=== PATIENT | male | born 2000 | race Caucasian/White ===

== ENCOUNTER 2020-07-02 14:00 | Emergency (ER) | payer OTHER, SELFPAY ==
[2020-07-02 14:07] VITALS: BP 120/62; PULSE 75; RESP 16; TEMP 36.2; O2SAT 100
--- NOTE | 2020-07-02 14:42 | ED.MALEGU ---
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 States the pain is persistent or worsens with pressure; uncomfortable sitting down so patient is lying on the stretcher; 4/10 lying, 8/10 when sitting Related Data Home Medications Medication Instructions Recorded Confirmed clobetasol 1 applic TOPICAL 2XW 07/02/20 07/02/20 Allergies Allergy/AdvReac Type Severity Reaction Status Date / Time No Known Allergies Allergy Verified 07/02/20 14:40 Review of Systems Review of Systems: Narrative: CONSTITUTIONAL: Denies fever, chills, sweats. EYES: Denies visual changes, redness, discharge. ENT: Denies rhinorrhea, congestion, sore throat, otalgia. CARDIOVASCULAR: Denies chest pain, palpitations, edema. RESPIRATORY: Denies dyspnea, wheezing, cough GASTROINTESTINAL: Denies abdominal pain, nausea, vomiting, diarrhea. GENITOURINARY: Denies dysuria, hematuria, abnormal discharge left lower inguinal, testicular pain SKIN: Denies rash or itching. NEUROLOGIC: Denies numbness, or focal weakness. PSYCHIATRIC: Denies anxiety or depression. [facility] Past Medical History Medical History No acute medical problems Family History Family History Other No acute medical problems Social History Social History (Updated 07/02/20 @ 15:17 by Christine Crane CNP) Smoking status: Never smoker Alcohol intake: never Comments At time of signature, I agree with nursing past medical, surgical, social and family history. There is no relevant family history pertinent to the presenting complaint. Exam Narrative: Exam Narrative: GENERAL: This is a well-nourished, well-developed patient, in moderate distress. HEAD: normocephalic, atraumatic. EYES: Sclera clear/white. Vision is grossly intact. EARS: External ears normal. Hearing grossly intact. NOSE: External nose normal without nasal discharge, nares without redness, no rhinorrhea. THROAT: Mucous membranes moist, NECK: Neck supple, non-tender CARDIOVASCULAR: Regular rate and rhythm without murmurs, gallops, or rubs. RESPIRATORY: Clear to auscultation. Breath sounds equal bilaterally. No wheezes, rales, or rhonchi. GASTROINTESTINAL: Abdomen soft, tender lower left inguinal area and left testicle which is mildly red and enlarged but not indurated, SKIN: warm, intact with no suspicious lesions or rash, good texture and turgor. NEURO: awake, alert, and oriented to person, place and time. There were no obvious focal neurologic abnormalities. Steady gait EXTREMITIES: Normal range of motion. BACK: Nontender without deformity Course Course Emergency Course: Patient was lifting at work and afterwards developed this lower left inguinal area On exam his testicle on the left appeared enlarged and patient could not sit up because of the pain of putting pressure on the area; manual exam left testicle was not indurated but tender to touch Patient transferred to [place] for ultrasound of the testicle spoke with RENZO Lizarraga Vital Signs Vital signs: Vital Signs Temperature 97.2 F L 07/02/20 14:07 Pulse Rate 75 07/02/20 14:07 Respiratory Rate 16 07/02/20 14:07 Blood Pressure 120/62 07/02/20 14:07 Pulse Oximetry 100 07/02/20 14:07 Temperature 97.2 F L 07/02/20 14:07 Pulse Rate 75 07/02/20 14:07 Respiratory Rate 16 07/02/20 14:07 Blood Pressure 120/62 07/02/20 14:07 Pulse Oximetry 100 07/02/20 14:07 MDM - Male Genitourinary Differential Diagnosis Differential diagnosis: Likely urinary tract infection, epidi
== END 2020-07-02 15:12 | disposition short-term general hospital (02) ==
PROVIDERS: Emergency Provider Nurse Practitioner; PCP Pediatrics
DX: N50.812 Left testicular pain (principal)
CPT/HCPCS: 81003; 99202; G0463

== ENCOUNTER 2020-07-02 15:29 | Emergency (ER) | payer OTHER, SELFPAY ==
--- NOTE | ~2020-07-02 | US_ITS ---
EXAMINATION: US scrotum doppler EXAM DATE: 07/02/2020 16:11 INDICATION: Groin, testicular pain. TECHNIQUE: Multiple grayscale and Doppler images of the testicles and scrotum were obtained bilateral ly. There is no prior study for comparison. FINDINGS: Right testicle measures 4.6 x 2.1 x 2.7 cm and is morphologically normal. Low resistance Doppler tricia w confirmed. The epididymis is unremarkable. There is no hydrocele or varicocele. Left testicle measures 4.4 x 1.9 x 2.8 cm and is morphologically normal. Low resistance Doppler flow confirmed. The epididymis is unremarkable. There is no hydrocele or varicocele. IMPRESSION: 1. Unremarkable testicular/scrotal ultrasound exam. Reviewed, dictated and finalized at location B.
[2020-07-02 15:30] VITALS: BP 121/61; PULSE 93; RESP 16; TEMP 36.8; O2SAT 100
[2020-07-02 16:01] LABS: Add Urine Microscopic? YES; Appearance Urine Clear (Clear); Bilirubin Urine Negative (Negative); Blood Urine Negative (Negative); Color Urine Yellow (Yellow); Glucose Urine UA Negative (Negative); Ketones Urine Negative (Negative); Leukocyte Esterase Ur Negative LEU/UL (Negative); Mucus Urine Rare /lpf; Nitrate Urine Negative (Negative); Protein Urine Negative (Negative); Squamous Epithelial Cell Urine Rare /hpf (Few); WBC Urine 0-3 /hpf
--- NOTE | 2020-07-02 16:36 | ED.GENADULT ---
HPI - General Adult General Chief complaint: Urogenital-Male <Zack Lizarraga PA-C - Last Filed: 07/02/20 16:43> Stated complaint: LEFT SIDED GROIN/TESTICULAR PAIN <Zack Lizarraga PA-C - Last Filed: 07/02/20 16:43> Time Seen by Provider: 07/02/20 15:51 <Zack Lizarraga PA-C - Last Filed: 07/02/20 16:43> Source: patient <Zack Lizarraga PA-C - Last Filed: 07/02/20 16:43> Mode of arrival: ambulatory <Zack Lizarraga PA-C - Last Filed: 07/02/20 16:43> Limitations: no limitations <Zack Lizarraga PA-C - Last Filed: 07/02/20 16:43> History of Present Illness HPI narrative: Patient is a 20-year-old male who presents to emergency department with left testicular pain from urgent care. Patient notes he does do frequent lifting at work developed aching pain to the left groin testicular region pain is worse with activity and movement patient denies known injury or trauma or any urinary symptoms or other complaints. Patient afebrile nontoxic-appearing no distress upon arrival does not appear uncomfortable has not taken anything for his pain <Zack Lizarraga PA-C - Last Filed: 07/02/20 16:43> Related Data Home medications: Home Medications Medication Instructions Recorded Confirmed clobetasol 1 applic TOPICAL 2XW 07/02/20 07/02/20 <Zack Lizarraga PA-C - Last Filed: 07/02/20 16:43> Allergies/adverse reactions: Allergies Allergy/AdvReac Type Severity Reaction Status Date / Time No Known Allergies Allergy Verified 07/02/20 14:40 <Zack Lizarraga PA-C - Last Filed: 07/02/20 16:43> Review of Systems Review of Systems: All systems reviewed & are unremarkable except as noted in HPI and below <Zack Lizarraga PA-C - Last Filed: 07/02/20 16:43> PMFSH Past Medical History Medical History: Medical History No acute medical problems <BENNY Durant Last Filed: 07/02/20 16:43> Family History Family History: Family History Other No acute medical problems <Zack Lizarraga PA-C - Last Filed: 07/02/20 16:43> Social History Social History: Social History Smoking status: Never smoker Alcohol intake: never <Zack Lizarraga PA-C - Last Filed: 07/02/20 16:43> Exam Narrative: Exam Narrative: GENERAL: Well-appearing, well-nourished, and in no acute distress. HEAD: Normocephalic, atraumatic. EYES: PERRLA and EOMI. ENT: Nares clear, no rhinorrhea or epistaxis. Mucous membranes moist. CHEST: Clear to auscultation. No respiratory distress. No wheezes rales or rhonchi HEART: Regular rate and rhythm. No murmur heard. Normal peripheral pulses. ABDOMEN: Soft, nontender, nondistended MALE GENITOURINARY: Tenderness of the left testicle with no abnormality noted no masses or other lesions groin nontender normal male genitalia aside from tenderness EXTREMITIES: Normal range of motion. No edema. SKIN: Warm, dry, no rash. NEURO: No focal deficits. Alert and oriented x3. PSYCH: Normal mood and affect. <Zack Lizarraga PA-C - Last Filed: 07/02/20 16:43> Course Course Emergency Course: Patient in the room in no distress aware of case findings treatment plan and diagnosis no abnormalities on the ultrasound normal urinalysis patient will follow with primary care patient likely experiencing patient strain of the groin. <Zack Lizarraga PA-C - Last Filed: 07/02/20 16:43> Vital Signs Vital signs: Vital Signs Temperature 98.2 F 07/02/20 15:30 Pulse Rate 93 07/02/20 15:30 Respiratory Rate 16 07/02/20 15:30 Blood Pressure 121/61 07/02/20 15:30 Pulse Oximetry 100 07/02/20 15:30 Temperature 98.2 F 07/02/20 15:30 Pulse Rate 93 07/02/20 15:30 Respiratory Rate 16 07/02/20 15:30 Blood Pressure 121/61 07/02/20 15:30 Pulse
[2020-07-02] MEDS: KETOROLAC (*BKC) 60 MG/2 ML VIAL 30 MG IM (16:41)
== END 2020-07-02 16:58 | disposition home or self-care (01) ==
PROVIDERS: Emergency Medicine; Emergency Provider General Practice; PCP Pediatrics
DX: R10.32 Left lower quadrant pain (principal)
CPT/HCPCS: 76870; 81001; 81003; 93976; 96372; 99284; J1885

== ENCOUNTER 2021-06-22 09:46 | Emergency (ER) | payer OTHER, SELFPAY ==
--- NOTE | ~2021-06-22 | CT_ITS ---
EXAMINATION: CT abdomen pelvis w con DATE: 06/22/2021 11:53 INDICATION: Right lower quadrant abdominal pain TECHNIQUE: Computed tomography (CT) of the abdomen and pelvis was performed with 100 mL Omnipaque-350 intravenous contrast. Automated exposure control and iterative reconstruction technique were employe d. The dose-length product was 215.89 mGy-cm. COMPARISON: None FINDINGS: Lung bases are clear. Heart size is normal. No pericardial or pleural effusion. Liver, gallbladder, s pleen, pancreas, bilateral adrenal glands and kidneys are normal. The talus and at the terminal ileum with small amount of increased submucosal fat which can be seen with increased body habitus but coul d also be sequela of chronic inflammation such as in the setting of Crohn's disease. No inflammatory stranding in the surrounding fat to more specifically suggest this. Bowels including the appendix are otherwise normal. Bladder is normal. No free intraperitoneal gas or fluid. No pathologically enlarge d abdominal or pelvic lymphadenopathy. Bones are unremarkable. IMPRESSION: 1. Subtle fat halo sign at the terminal ileum which does raise some suspicion for Crohn's disease alt maricel there is no associated inflammatory stranding to more specifically suggest this. 2. Normal appendix. No other acute intra-abdominal/pelvic process. Reviewed, dictated and finalized at location A. IMPRESSION: 1. Subtle fat halo sign at the terminal ileum which does raise some suspicion f or Crohn's disease although there is no associated inflammatory stranding to mo re specifically suggest this. 2. Normal appendix. No other acute intra-abdominal/pelvic process.
[2021-06-22 09:59] VITALS: BP 137/64; PULSE 73; RESP 16; TEMP 36.1; O2SAT 100
[2021-06-22 09:59] LABS: Basophils Percent Auto 0.6 % (0.2-1.2); Eosinophils Absolute Auto 0.1 K/mm3 (0-0.3); Eosinophils Percent Auto 1.8 % (0-4.4); Hematocrit 42.4 % (42.0-52.0); Hemoglobin 14.8 g/dL (14.0-18.0); Immature Granulocyte Absolute 0.02 K/mm3 (0.00-0.031); Immature Granulocyte Percent A 0.3 % (0-0.5); Lymphocytes Absolute Auto 2.23 K/mm3 (0.9-3.2); Lymphocytes Percent Auto 33.1 % (18.3-44.2); Mean Corpuscular HGB Conc 34.9 g/dl (32-36); Mean Corpuscular Volume 88.7 fl (80-100); Mean Platelet Volume 10.2 fl (7.4-10.4); Monocytes Absolute Auto 0.6 K/mm3 (0.1-0.6); Monocytes Percent Auto 8.3 % (2.6-8.5); Neutrophils Absolute Auto 3.8 K/mm3 (1.3-6.7); Neutrophils Percent Auto 55.9 % (45.5-73.1); Platelet Count Result 250 k/mm3 (150-375); Red Blood Count 4.78 M/mm3 (4.6-6.20); Red Cell Distribution Width 11.7 % (11.5-14.5); White Blood Count 6.7 K/mm3 (4.5-10.0)
[2021-06-22 10:09] LABS: Alanine Aminotransferase 45 U/L (4-50); Albumin Level 5.1 g/dL (3.5-5.1); Alkaline Phosphatase 83 U/L (38-126); Anion Gap 14 mmol/L (8-16); Aspartate Amino Transferase 43 U/L (17-59); Bilirubin,Total 0.8 mg/dL (0.2-1.3); Blood Urea Nitrogen 18 mg/dL (9-20); Calcium 9.5 mg/dL (8.4-10.2); Carbon Dioxide 21 mmol/L (22-30); Chloride 103 mmol/L (98-107); Estimated CRCL calculation 86 ml/min; Estimated Glomerular Filt Rate > 60; Glucose 128 mg/dL (65-110); Lipase 50 U/L (23-300); Potassium 3.5 mmol/L (3.4-5.0); Sodium 138 mmol/L (137-145)
--- NOTE | 2021-06-22 10:42 | PC.NURSE ---
Pt unable to provide urine sample at this time.
--- NOTE | 2021-06-22 11:15 | ED.ABDPAIN ---
HPI - Abdominal Pain General Chief Complaint: Abdominal Pain <BENNY Calabrese Last Filed: 06/22/21 18:59> Stated Complaint: rlq pain <BENNY Calabrese Last Filed: 06/22/21 18:59> Time Seen by Provider: 06/22/21 10:23 <BENNY Calabrese Last Filed: 06/22/21 18:59> Source: patient <BENNY Calabrese Last Filed: 06/22/21 18:59> Mode of arrival: ambulatory <BENNY Calabrese Last Filed: 06/22/21 18:59> Limitations: no limitations <BENNY Calabrese Last Filed: 06/22/21 18:59> History of Present Illness HPI narrative: Patient is a 21-year-old male who presents the ED with report of right lower quadrant abdominal pain. Patient reports the pain began approximately 1 hour prior to arrival and was very severe. He was tender when his significant other pressed on his abdomen and states the pain was aggravated with hitting bumps in the road on the way here. He states the pain radiated slightly around to his right lower back. Patient did mention having slight mid abdominal pain yesterday after eating. He felt better after having a bowel movement and did not think much more of it. He also reports having nausea but denies any vomiting, fever, chills, dysuria, hematuria, diarrhea, constipation, history of kidney stones. Patient has not taken anything for pain today. <BENNY Calabrese Last Filed: 06/22/21 18:59> Related Data Home Medications: Home Medications Medication Instructions Recorded Confirmed clobetasol 1 applic TOPICAL 2XW 07/02/20 07/02/20 <BENNY Calabrese Last Filed: 06/22/21 18:59> Allergies/Adverse Reactions: Allergies Allergy/AdvReac Type Severity Reaction Status Date / Time No Known Allergies Allergy Verified 06/22/21 10:02 <BENNY Calabrese Last Filed: 06/22/21 18:59> Review of Systems Review of Systems: CONSTITUTIONAL: Denies fever, chills. CARDIOVASCULAR: Denies chest pain. RESPIRATORY: Denies dyspnea. GASTROINTESTINAL: Reports RLQ ABD pain, nausea. Denies vomiting, constipation, rectal bleeding, melena, or diarrhea. GENITOURINARY: Denies dysuria or hematuria. MUSCULOSKELETAL: Reports R lower back pain. <Bernadine Valdivia PA-C - Last Filed: 06/22/21 18:59> All systems reviewed & are unremarkable except as noted in HPI and below <Bernadine Valdivia PA-C - Last Filed: 06/22/21 18:59> REPLACED BY [facility] Past Medical History Medical History: Medical History No acute medical problems <Bernadine Valdivia PA-C - Last Filed: 06/22/21 18:59> Surgical History Surgical History: Surgical History (Updated 06/22/21 @ 18:45 by Bernadine Valdivia PA-C) No pertinent past surgical history <Bernadine Valdivia PA-C - Last Filed: 06/22/21 18:59> Family History Family History: Family History Other No acute medical problems <Bernadine Valdivia PA-C - Last Filed: 06/22/21 18:59> Social History Social History: Social History Smoking status: Never smoker Alcohol intake: never <Bernadine Valdivia PA-C - Last Filed: 06/22/21 18:59> Exam Narrative: GENERAL: Well appearing, well-nourished, non-toxic, in no acute distress. HEAD: Normocephalic, atraumatic. NECK: Supple. No adenopathy, no masses. RESPIRATORY: Airway patent, respirations nonlabored. Clear to auscultation bilaterally, no rales, rhonchi, wheezing. CARDIOVASCULAR: Regular rate and rhythm without murmurs, rubs, or gallops. Peripheral pulses 2+ and equal bilaterally. ABDOMINAL: Soft, tenderness to palpation in RLQ, mild Rovsing's sign, no rebound tenderness, nondistended, no hepatosplenomegaly. Normoactive BS. MUSCULOSKELETAL: Moves all extremities. Strength/ROM intact without gross deformities or TTP. SKIN: Warm, dry, normal color. No rashes. NEURO: A&O X3. Speech clear. Cranial nerves II-XII gross
[2021-06-22] MEDS: ONDANSETRON INJ 4 MG/2 ML VIAL IV PUSH (11:27)
[2021-06-22] MEDS: SODIUM CHLORIDE 0.9% IV 1,000 ML 999 ML IV CONT (11:28)
[2021-06-22 11:53] VITALS: BP 131/73; PULSE 68; RESP 15; O2SAT 98
[2021-06-22 12:18] LABS: Add Urine Microscopic? YES; Appearance Urine Cloudy (Clear); Bilirubin Urine Negative (Negative); Blood Urine 1+ (Negative); Color Urine Yellow (Yellow); Glucose Urine UA Negative (Negative); Ketones Urine Negative (Negative); Leukocyte Esterase Ur Negative LEU/UL (Negative); Mucus Urine Rare /lpf; Nitrate Urine Negative (Negative); Protein Urine Negative (Negative); RBC Urine 21-50 /hpf (0-2); Specific Grav Ur 1.021 (1.001-1.035); Urobilinogen Urine Negative mg/dL (<2.0); WBC Urine 0-3 /hpf
[2021-06-22 12:54] VITALS: BP 127/78; PULSE 64; RESP 16; O2SAT 100
[2021-06-22 13:53] VITALS: BP 123/75; PULSE 72; RESP 16; O2SAT 99
== END 2021-06-22 14:01 | disposition home or self-care (01) ==
PROVIDERS: Emergency Provider Emergency Medicine; PCP Pediatrics
DX: R10.31 Right lower quadrant pain (principal)
CPT/HCPCS: 36415; 74177; 80053; 81001; 83690; 85025; 96361; 96365; 96375; 99284; J0131; J2405; J7030; Q9967

== ENCOUNTER 2021-09-17 12:30 | Day surgery (SDC) | payer OTHER, SELFPAY ==
[2021-08-29 09:34] VITALS: BMI 21.7
[2021-09-17 12:51] VITALS: BP 120/65; PULSE 102; RESP 16; TEMP 37.3; O2SAT 99; BMI 19.3
--- NOTE | 2021-09-17 12:54 | P.PNAN_ITS ---
Anes - Initial Pre Proc Eval Procedure: Operation Date: 09/17/21 13:30 Proposed Procedures p Diagnostic Colonoscopy - Semaj Russo MD Date/Time: 09/17/21 12:54 Surgeon: Semaj Russo MD Pre Op Diagnosis: Abnormal CT Scan Patient Data Age: 21 Gender: M Height: 1.74 m Weight: 58.5 kg Last Vital Signs Temp 37.3 C 09/17/21 12:51 Pulse 102 H 09/17/21 12:51 Resp 16 09/17/21 12:51 BP 120/65 09/17/21 12:51 Pulse Ox 99 09/17/21 12:51 O2 Del Method Room Air 09/17/21 12:51 Allergies Allergy/AdvReac Type Severity Reaction Status Date / Time No Known Allergies Allergy Verified 09/17/21 12:46 Home Medications Medication Instructions Recorded Confirmed Type clobetasol 0.05 % shampoo 1 applic topical 2XW 07/02/20 09/17/21 History ibuprofen 600 mg tablet (IBU) 600 mg PO Q6H PRN fever or pain #7 07/02/20 09/17/21 Rx tabs tacrolimus 0.1 % topical ointment 1 applic topical .prn 07/25/21 09/17/21 History triamcinolone acetonide 0.1 % 1 applic topical .prn 07/25/21 09/17/21 History topical cream sodium sul 1.479 gram-potas ch See Rx Instructions PO .COMPLEX 08/07/21 08/29/21 Rx 0.188 gram-magnes sul 0.225 gram #24 tabs tablet (Sutab) Patient hx anesthesia problems: none Family hx anesthesia problems: none Results Review: All pre-operative results and documents have been reviewed as part of the pre- operative evaluation. [facility] Past Medical History Medical History Abnormal computed tomography of cecum and terminal ileum No acute medical problems Psoriasis RLQ abdominal pain Surgical History Surgical History No pertinent past surgical history Family History Family History Father Hypertension Mother Hypertension Other No acute medical problems Social History Social History Smoking status: Never smoker Alcohol intake: never Substance use: unknown Living arrangements: with family Spiritual care concerns: No Anes - Eval Final PreProcedure Day of Procedure 09/17/21 12:54 Patient weight: normal Heart: regular rate and rhythm Lungs: clear to auscultation Airway: Mallampati scale class II Neurological: alert and oriented Last oral intake: >/= 8 hours ASA classification: II Emergent: no Anesthetic plan: proceed Anesthesia type and monitoring: general GIVS and standard monitoring Results Review: All pre-operative results and documents have been reviewed as part of the pre- operative evaluation. Informed Consent: The patient's anesthetic plan and its attendant risks and benefits were discussed with the patient/family/POA. Questions were solicited and answers provided to the satisfaction of the patient/family/POA.
--- NOTE | 2021-09-17 12:59 | PM.HPGS ---
History of Present Illness History of Present Illness Consent: Risks, benefits, and alternatives have been discussed and questions answered. Patient agrees to proceed with procedure. Chief complaint: Abnormal CT Scan Narrative: Jerome Coffman is a 21 year old male who had severe pain several weeks ago, CT scan showed possible abnormal ileum, no more issues. Never had colonoscopy Review of Systems Constitutional: Constitutional: Denies headache(s) and Denies weakness Eyes: Eyes: Denies blurry vision ENT: Reports Normal hearing present, Denies headache(s) and Denies neck pain Cardiovascular: Cardiovascular: Denies chest pain and Denies dyspnea Respiratory: Respiratory: Denies dyspnea Gastrointestinal: Gastrointestinal: Reports no additional gastrointestinal complaints Genitourinary: Genitourinary: Denies dysuria Musculoskeletal: Musculoskeletal: Denies neck pain Integumentary/Breasts: Skin/Breast: Denies dry skin Neurologic: Reports Normal hearing present, Denies headache(s) and Denies weakness Psychiatric: Psychiatric: Denies anxiety Endocrine: Endocrine: Denies change in body appearance Hematologic/Lymphatic: Hematologic/Lymphatic: Denies easy bleeding Allergic/Immunologic: Allergic/Immunologic: Denies urticaria PMFSH Past Medical History Medical History Abnormal computed tomography of cecum and terminal ileum No acute medical problems Psoriasis RLQ abdominal pain Surgical History Surgical History No pertinent past surgical history Family History Family History Father Hypertension Mother Hypertension Other No acute medical problems Social History Social History Smoking status: Never smoker Alcohol intake: never Substance use: unknown Living arrangements: with family Spiritual care concerns: No Meds Home Medications and Allergies Home Medications Medication Instructions Recorded Confirmed Type clobetasol 0.05 % shampoo 1 applic topical 2XW 07/02/20 09/17/21 History ibuprofen 600 mg tablet (IBU) 600 mg PO Q6H PRN fever or pain #7 07/02/20 09/17/21 Rx tabs tacrolimus 0.1 % topical ointment 1 applic topical .prn 07/25/21 09/17/21 History triamcinolone acetonide 0.1 % 1 applic topical .prn 07/25/21 09/17/21 History topical cream sodium sul 1.479 gram-potas ch See Rx Instructions PO .COMPLEX 08/07/21 08/29/21 Rx 0.188 gram-magnes sul 0.225 gram #24 tabs tablet (Sutab) Allergies Allergy/AdvReac Type Severity Reaction Status Date / Time No Known Allergies Allergy Verified 09/17/21 12:46 Vital Signs Vital Signs - 24 hr 09/17/21 12:51 Temperature 99.1 F Pulse Rate 102 H Respiratory Rate 16 Blood Pressure 120/65 Pulse Oximetry 99 Oxygen Delivery Room Air Exam Const: General: comfortable and no acute distress HENMT: General nose exam: Normal nares present Eyes: General: appearance normal, both eyes and all related structures Neck: Neck: no JVD Resp: Auscultation: clear to auscultation bilaterally Cardio: Rate: regular rate Rhythm: regular rhythm GI: Inspection: non-distended GI Palp: Yes Soft to palpation Skin: General skin exam: normal color Neuro: General: gait normal Speech: normal speech Extrem: General: normal to inspection Psych: Mental Status: mental status grossly normal Assessment and Plan Assessment and plan (1) Abnormal computed tomography of cecum and terminal ileum: Code(s): R93.3 - Abnormal findings on diagnostic imaging of other parts of digestive tract Status: Acute Assessment and Plan: will assess with colonoscopy
[2021-09-17] MEDS: LACTATED RINGERS 1,000 ML 150 ML IV CONT (13:01)
[2021-09-17 13:20] VITALS: BP 81/49; PULSE 87; RESP 16; O2SAT 100
[2021-09-17 13:30] VITALS: BP 108/50; PULSE 80; RESP 16; O2SAT 99
[2021-09-17 13:41] VITALS: BP 100/58; PULSE 76; RESP 16; O2SAT 100
--- NOTE | 2021-09-17 14:07 | WPDANESPN ---
Anes - Prog Note Post-Op Date/Time: 09/17/21 14:07 Cardiovascular status: normal Respiratory status: normal Airway patency: baseline Mental status: baseline Post-Op hydration status: normal Vital Signs: Last Vital Signs Temp 37.3 C 09/17/21 12:51 Pulse 76 09/17/21 13:41 Resp 16 09/17/21 13:41 BP 100/58 L 09/17/21 13:41 Pulse Ox 100 09/17/21 13:41 O2 Del Method Room Air 09/17/21 13:41 Pain Score (VAS): 0 I/O: Intake & Output 09/16/21 09/17/21 09/17/21 23:59 07:59 15:59 Intake Total 500 Balance 500 Patient Feedback: Patient satisfied with anesthetic care.
== END 2021-09-17 13:50 | disposition home or self-care (01) ==
PROVIDERS: Visit Provider Internal Medicine Gastroenterology
PROC: 0DJD8ZZ Inspection of Lower Intestinal Tract, Via Natural or Artificial Opening Endoscopic (ICD-10-PCS; CPT 45378; principal; 2021-09-17 13:30)
DX: R93.3 Abnormal findings on diagnostic imaging of other parts of digestive tract (principal)
CPT/HCPCS: 45378